=== PATIENT | female | born 1945 | race Caucasian/White ===

== ENCOUNTER 2017-03-16 14:54 | Emergency (ER) | payer MEDICARE, OTHER ==
[~2017-03-16 14:54] MED LIST: AEC81 PO; FAMO-136 PO; MYCO500T PO; OLAN2.5T3 PO; PANT40TA25 PO; PRAV40TA PO; PRED5TAB PO; TACR1CAP10 PO
[2017-03-16 15:36] LABS: BASOPHILS % (AUTO) 0.7 % (0.0-5.0); EOSINOPHILS % (AUTO) 0.8 % (0.0-8.0); HEMATOCRIT 29.4 % (36-48); LYMPHOCYTES % (AUTO) 25.5 % (21.0-51.0); MEAN CORPUSCULAR HEMOGLOBIN 29.4 pg (27.0-33.0); MEAN CORPUSCULAR HGB CONC 32.3 g/dL (32.0-36.0); MONOCYTES % (AUTO) 2.5 % (3.0-13.0); NEUTROPHILS % (AUTO) 70.5 % (40.0-77.0); PLATELET COUNT (AUTO) 287 K/uL (130-400); RED BLOOD CELL COUNT(AUTO) 3.23 MIL/uL (4.00-5.50); RED CELL DISTRIBUTION WIDTH 17.5 % (11.0-15.5); WHITE BLOOD COUNT (AUTO) 3.8 K/uL (4.8-10.8)
[2017-03-16 16:12] LABS: INR 0.97 (0.85-1.15); PARTIAL THROMBOPLASTIN TIME 23.4 SEC (26.3-35.5); PROTHROMBIN TIME 10.2 SEC (9.6-11.6)
[2017-03-16 16:25] LABS: CREATININE 1.6 mg/dL (0.5-1.5); POTASSIUM 4.2 mmol/L (3.5-5.1)
[2017-03-16 16:30] LABS: ALBUMIN 3.5 g/dL (3.5-5.0); BILIRUBIN,TOTAL 0.6 mg/dL (0.2-1.0); TOTAL PROTEIN, SERUM 7.6 g/dL (6.0-8.3)
[2017-03-16 17:59] LABS: APPEARANCE,URINE Clear (CLEAR); BILIRUBIN,URINE Negative (NEGATIVE); COLOR,URINE Yellow (YELLOW); GLUCOSE, URINE (UA) Negative (NEGATIVE); KETONES,URINE Negative (NEGATIVE); LEUKOCYTE ESTERASE ,URINE Negative (NEGATIVE); NITRATE,URINE Negative (NEGATIVE); OCCULT BLOOD,URINE Negative (NEGATIVE); PROTEIN,URINE Negative (NEGATIVE); UROBILINOGEN,URINE 0.2 mg/dL (0.2-1.0)
[2017-03-16 20:08] LABS: BASOPHILS % (AUTO) 0.9 % (0.0-5.0); EOSINOPHILS % (AUTO) 0.9 % (0.0-8.0); HEMATOCRIT 27.7 % (36-48); LYMPHOCYTES % (AUTO) 29.6 % (21.0-51.0); MEAN CORPUSCULAR HEMOGLOBIN 29.5 pg (27.0-33.0); MEAN CORPUSCULAR HGB CONC 32.5 g/dL (32.0-36.0); MEAN CORPUSCULAR VOLUME 90.7 fL (79-99); MONOCYTES % (AUTO) 2.4 % (3.0-13.0); NEUTROPHILS % (AUTO) 66.2 % (40.0-77.0); PLATELET COUNT (AUTO) 284 K/uL (130-400); RED BLOOD CELL COUNT(AUTO) 3.06 MIL/uL (4.00-5.50); RED CELL DISTRIBUTION WIDTH 17.5 % (11.0-15.5); WHITE BLOOD COUNT (AUTO) 3.7 K/uL (4.8-10.8)
== END 2017-03-16 20:34 | disposition home or self-care (01) ==
LOC: EDH 14:54
DX: D64.9 Anemia, unspecified (principal); R53.1 Weakness; R41.0 Disorientation, unspecified; I12.0 Hypertensive chronic kidney disease with stage 5 chronic kidney disease or end stage renal disease; N18.6 End stage renal disease; F41.9 Anxiety disorder, unspecified; Z88.6 Allergy status to analgesic agent; Z88.2 Allergy status to sulfonamides; Z99.2 Dependence on renal dialysis
CPT/HCPCS: 36415; 70450; 80053; 81003; 85025; 85610; 85730; 93005

== ENCOUNTER 2018-12-23 11:05 | Inpatient (IN) | payer OTHER ==
[~2018-12-23] VITALS: Ht 149.9 cm; Wt 62.5 kg
[~2018-12-23 11:05] MED LIST changes: -AEC81 PO; +AMLO10TA7 PO; +CARV6.25 PO; +ESZO3 PO; -FAMO-136 PO; +LAMO200T51 PO; +LEVO75TA4 PO; +LOSA50TA64 PO; +MAGN400T40 PO; -MYCO500T PO; +OLAN10TA3 PO; -OLAN2.5T3 PO; +OLAN5TAB2 PO; -PRAV40TA PO; +PRAV40TA3 PO; +VALG450T3 PO
[2018-12-23] MEDS ORDERED: SODIUM CHLORIDE 0.9% 10 ML VIAL IVP PRN (11:45)
[2018-12-23] MEDS ORDERED: IPRATROPIUM/ALBUTEROL SULFATE 3 ML SOLUTION IH ONE (12:01)
[2018-12-23] MEDS ORDERED: ACETYLCYSTEINE 20% 200MG/ML 4ML VIAL ONE (12:02)
[2018-12-23] MEDS: IPRATROPIUM/ALBUTEROL SULFATE 3 ML SOLUTION IH SCH ×3 (12:10→23:54)
[2018-12-23] MEDS: ACETYLCYSTEINE 20% 200MG/ML 4ML VIAL IH SCH ×2 (12:10→23:54)
[2018-12-23 12:29] LABS: BASOPHILS % (AUTO) 0.2 % (0.0-5.0); HEMATOCRIT 34.9 % (36-48); LYMPHOCYTES % (AUTO) 15.4 % (21.0-51.0); MEAN CORPUSCULAR HEMOGLOBIN 31.8 pg (27.0-33.0); MEAN CORPUSCULAR HGB CONC 32.8 g/dL (32.0-36.0); MEAN CORPUSCULAR VOLUME 96.7 fL (79-99); MONOCYTES % (AUTO) 4.5 % (3.0-13.0); NEUTROPHILS % (AUTO) 79.9 % (40.0-77.0); NUCLEATED RED BLOOD CELLS 0.1 % (0.0-0.19); PLATELET COUNT (AUTO) 183 K/uL (130-400); RED BLOOD CELL COUNT(AUTO) 3.61 MIL/uL (4.00-5.50); RED CELL DISTRIBUTION WIDTH 14.7 % (11.0-15.5); WHITE BLOOD COUNT (AUTO) 9.3 K/uL (4.8-10.8)
[2018-12-23 12:38] LABS: CREATININE 1.9 mg/dL (0.5-1.5); POTASSIUM 4.1 mmol/L (3.5-5.1)
[2018-12-23 12:43] LABS: ALBUMIN 3.1 g/dL (3.5-5.0); BILIRUBIN,DIRECT 0.1 mg/dL (0.0-0.3); BILIRUBIN,TOTAL 0.6 mg/dL (0.2-1.0); TOTAL PROTEIN, SERUM 6.2 g/dL (6.0-8.3)
--- NOTE | 2018-12-23 13:44 | NUR ---
Received report from ED nurse Vianca Diallo RN. Per Vianca, no meds given in ED.
--- NOTE | 2018-12-23 13:47 | NUR ---
SMOKED 1PK/WEEK Addendum: 12/23/18 at 1348 by EYAD ABDUL RT Amended: Links added.
[2018-12-23 13:55] VITALS: BP 147/71
[2018-12-23] MEDS ORDERED: SOD1POWD3 PO (14:42)
[2018-12-23] MEDS ORDERED: FAMO20TA8 PO (14:42)
[2018-12-23] MEDS ORDERED: TAMS-1 PO (14:42)
[2018-12-23] MEDS ORDERED: LAMO200T10 PO (14:42)
[2018-12-23] MEDS ORDERED: LEVO50 PO (14:42)
[2018-12-23] MEDS ORDERED: APIX5TAB PO (14:42)
[2018-12-23] MEDS ORDERED: MYCO500T PO (14:42)
[2018-12-23] MEDS ORDERED: LOSA50TA64 PO (14:42)
[2018-12-23] MEDS ORDERED: OLAN15TA18 PO (14:42)
[2018-12-23] MEDS ORDERED: CHOL500050 PO (14:54)
[2018-12-23 16:00] VITALS: BP 123/62
[2018-12-23] MEDS: CEFTRIAXONE SODIUM 1 GM IVP SCH ×2 (18:09→23:19)
[2018-12-23 20:00] VITALS: BP 132/67
[2018-12-23] MEDS: [UNRECOGNIZED DRUG - OTHER] PO SCH (21:00)
[2018-12-23] MEDS ORDERED: LEVOTHYROXINE 50 MCG TABLET PO SCH (21:00)
[2018-12-23] MEDS: ESZOPICLONE 3 MG PO SCH (21:00)
[2018-12-23] MEDS: LAMOTRIGINE 200 MG PO SCH (21:00)
[2018-12-23] MEDS: FAMOTIDINE 20MG TAB 20 MG TAB PO SCH (21:00)
[2018-12-23] MEDS: TAMSULOSIN HCL 0.4 MG CAP.ER.24H PO SCH (21:05)
[2018-12-23] MEDS: MYCOPHENOLATE MOFETIL 250 MG CAPSULE PO SCH (21:05)
[2018-12-23] MEDS: MAGNESIUM OXIDE 400 MG TABLET PO SCH (21:06)
[2018-12-23] MEDS: CARVEDILOL 6.25 MG TABLET PO SCH (21:06)
[2018-12-23] MEDS: APIXABAN 5 MG TABLET PO SCH (21:07)
[2018-12-23] MEDS: OLANZAPINE 5 MG TAB PO SCH (21:27)
[2018-12-23] MEDS: ATORVASTATIN CALCIUM 10 MG TABLET PO SCH (21:27)
[2018-12-23] MEDS: TACROLIMUS 1 MG CAPSULE PO SCH (21:28)
[2018-12-23] MEDS ORDERED: LAMOTRIGINE 25 MG TAB PO SCH (21:45)
[2018-12-24] VITALS (7 sets, daily range): BP systolic 102–155; BP diastolic 55–75
[2018-12-24 04:49] LABS: BASOPHILS % (AUTO) 0.1 % (0.0-5.0); HEMATOCRIT 30.9 % (36-48); LYMPHOCYTES % (AUTO) 22.5 % (21.0-51.0); MEAN CORPUSCULAR HEMOGLOBIN 32.1 pg (27.0-33.0); MEAN CORPUSCULAR HGB CONC 33.5 g/dL (32.0-36.0); MEAN CORPUSCULAR VOLUME 95.9 fL (79-99); MONOCYTES % (AUTO) 5.3 % (3.0-13.0); NEUTROPHILS % (AUTO) 72.1 % (40.0-77.0); PLATELET COUNT (AUTO) 180 K/uL (130-400); RED BLOOD CELL COUNT(AUTO) 3.22 MIL/uL (4.00-5.50); RED CELL DISTRIBUTION WIDTH 14.8 % (11.0-15.5)
[2018-12-24 05:09] LABS: ALBUMIN 2.5 g/dL (3.5-5.0); BILIRUBIN,DIRECT 0.1 mg/dL (0.0-0.3); BILIRUBIN,TOTAL 0.3 mg/dL (0.2-1.0); CREATININE 1.6 mg/dL (0.5-1.5); POTASSIUM 3.8 mmol/L (3.5-5.1); TOTAL PROTEIN, SERUM 5.4 g/dL (6.0-8.3)
[2018-12-24] MEDS: ACETYLCYSTEINE 20% 200MG/ML 4ML VIAL IH SCH ×3 (06:05→18:21)
[2018-12-24] MEDS: IPRATROPIUM/ALBUTEROL SULFATE 3 ML SOLUTION IH SCH ×3 (06:06→18:21)
[2018-12-24] MEDS: AMLODIPINE BESYLATE 5 MG TAB PO SCH (09:00)
[2018-12-24] MEDS: MYCOPHENOLATE MOFETIL 250 MG CAPSULE PO SCH ×2 (09:00→22:48)
[2018-12-24] MEDS: LOSARTAN 50 MG TABLET PO SCH (09:00)
[2018-12-24] MEDS: LAMOTRIGINE 200 MG PO SCH ×2 (09:00→21:00)
[2018-12-24] MEDS: CARVEDILOL 6.25 MG TABLET PO SCH ×2 (09:00→22:43)
[2018-12-24] MEDS: VALGANCICLOVIR HCL 450 MG TABLET PO SCH (09:00)
[2018-12-24] MEDS: [UNRECOGNIZED DRUG - OTHER] PO SCH ×2 (09:00→21:00)
[2018-12-24] MEDS: APIXABAN 5 MG TABLET PO SCH ×2 (09:00→22:43)
[2018-12-24] MEDS: PREDNISONE 5 MG TABLET PO SCH (09:00)
[2018-12-24] MEDS: TACROLIMUS 1 MG CAPSULE PO SCH ×2 (09:00→22:45)
[2018-12-24] MEDS ORDERED: ACETAMINOPHEN EXTRA STRENGTH 500 MG TABLET PO PRN (10:15)
[2018-12-24] MEDS: PANTOPRAZOLE SODIUM 40 MG TABLET.DR PO SCH (10:35)
[2018-12-24] MEDS: DOCUSATE SODIUM 100 MG CAP PO SCH (10:35)
[2018-12-24] MEDS: MAGNESIUM OXIDE 400 MG TABLET PO SCH ×2 (10:35→22:46)
[2018-12-24] MEDS: ACETAMINOPHEN EXTRA STRENGTH 500 MG TABLET PO PRN ×2 (10:36→14:08)
--- NOTE | 2018-12-24 11:00 | NUR ---
INITIAL AND REFERRAL TO SNF MET W PT, SISTER LOLA FELIX AND CAREGIVER ROBSON, SPOKE TO SPOUSE VIA TELEPHONE PT LIVES WITH SPOUES, USUALLY HAD 10 HR/DAYX5 DAY/WEEK CAREGIVING, RIGHT NOW ITS 18/09; NO STAIRS AT HOME- JUST TWO SMALL STEPS; PT WAS USING A CANE BUT IS NOW USING A WALKER/AND W/CHAIR- FREQUENT FALLS, RECENT SHARP DECLINE- PT CAN ANSWER APPROPRIATLEY BUT IS VERY SLEEPY AND ALLOWS SISTER TO GIVE HISTORY. ORER FOR SNF. [facility] /CHOICE FOR [facility] PER SISTER/CAREGIVER A AND CALL TO SPOUSE TO CONFIRM. CALL TO MORE TO INFORM OF REFERRAL AND FAXED , PENDING UT NOTES Addendum: 12/24/18 at 1727 by RUY LLANES RN Amended: Links added.
[2018-12-24] MEDS ORDERED: ONDANSETRON HCL 4 MG/2 ML VIAL ONE (11:55)
[2018-12-24] MEDS: CEFTRIAXONE SODIUM 1 GM IVP SCH (11:58)
[2018-12-24] MEDS: GUAIFENESIN-DM 200/20 MG 10 ML PO PRN (16:52)
[2018-12-24] MEDS ORDERED: IPRATROPIUM/ALBUTEROL SULFATE 3 ML SOLUTION IH ONE ×2 (18:04→22:43)
[2018-12-24] MEDS ORDERED: ACETYLCYSTEINE 20% 200MG/ML 4ML VIAL ONE ×2 (18:05→22:43)
[2018-12-24] MEDS: CEFTAZIDIME PENTAHYDRATE 1 GM/VIAL IVP SCH (18:07)
[2018-12-24] MEDS: FLUCONAZOLE 100 MG TAB PO SCH (18:07)
[2018-12-24] MEDS: LEVOFLOXACIN 500 MG TABLET PO SCH (18:08)
[2018-12-24] MEDS: ESZOPICLONE 3 MG PO SCH (21:00)
[2018-12-24] MEDS ORDERED: ZOLPIDEM TARTRATE 5 MG TAB PO SCH (21:00)
[2018-12-24] MEDS ORDERED: FAMOTIDINE 20MG TAB 20 MG TAB ONE (22:38)
[2018-12-24] MEDS: ATORVASTATIN CALCIUM 10 MG TABLET PO SCH (22:44)
[2018-12-24] MEDS: FAMOTIDINE 20MG TAB 20 MG TAB PO SCH (22:44)
[2018-12-24] MEDS: TAMSULOSIN HCL 0.4 MG CAP.ER.24H PO SCH (22:44)
[2018-12-24] MEDS: OLANZAPINE 5 MG TAB PO SCH (22:44)
[2018-12-24] MEDS: LEVOTHYROXINE 88 MCG TABLET PO SCH (22:44)
[2018-12-25 03:57] VITALS: BP 128/66
[2018-12-25 04:34] LABS: HEMATOCRIT 28.7 % (36-48); MEAN CORPUSCULAR HEMOGLOBIN 32.4 pg (27.0-33.0); MEAN CORPUSCULAR HGB CONC 33.4 g/dL (32.0-36.0); MEAN CORPUSCULAR VOLUME 96.9 fL (79-99); PLATELET COUNT (AUTO) 149 K/uL (130-400); RED BLOOD CELL COUNT(AUTO) 2.96 MIL/uL (4.00-5.50); RED CELL DISTRIBUTION WIDTH 14.9 % (11.0-15.5); WHITE BLOOD COUNT (AUTO) 9.8 K/uL (4.8-10.8)
[2018-12-25 05:01] LABS: CREATININE 1.6 mg/dL (0.5-1.5); POTASSIUM 4.1 mmol/L (3.5-5.1); THYROID STIMULATING HORMONE 7.32 uIU/mL (0.36-3.74)
[2018-12-25] MEDS: CEFTAZIDIME PENTAHYDRATE 1 GM/VIAL IVP SCH ×2 (05:31→18:15)
[2018-12-25] MEDS: ACETYLCYSTEINE 20% 200MG/ML 4ML VIAL IH SCH ×3 (05:59→19:10)
[2018-12-25] MEDS: IPRATROPIUM/ALBUTEROL SULFATE 3 ML SOLUTION IH SCH ×4 (06:00→23:47)
[2018-12-25 07:30] VITALS: BP 126/66
[2018-12-25] MEDS: MYCOPHENOLATE MOFETIL 250 MG CAPSULE PO SCH ×2 (09:00→21:00)
[2018-12-25] MEDS: LOSARTAN 50 MG TABLET PO SCH (09:00)
[2018-12-25] MEDS: PREDNISONE 5 MG TABLET PO SCH (09:00)
[2018-12-25] MEDS: CARVEDILOL 6.25 MG TABLET PO SCH ×2 (09:00→21:00)
[2018-12-25] MEDS: TACROLIMUS 1 MG CAPSULE PO SCH ×2 (09:00→21:00)
[2018-12-25] MEDS: AMLODIPINE BESYLATE 5 MG TAB PO SCH (09:00)
[2018-12-25] MEDS: VALGANCICLOVIR HCL 450 MG TABLET PO SCH (09:00)
[2018-12-25] MEDS: APIXABAN 5 MG TABLET PO SCH ×2 (09:00→21:00)
[2018-12-25] MEDS: [UNRECOGNIZED DRUG - OTHER] PO SCH ×2 (09:00→21:00)
[2018-12-25] MEDS: LAMOTRIGINE 200 MG PO SCH ×2 (09:00→21:00)
[2018-12-25] MEDS: ACETAMINOPHEN EXTRA STRENGTH 500 MG TABLET PO PRN ×2 (09:26→15:18)
[2018-12-25] MEDS: DOCUSATE SODIUM 100 MG CAP PO SCH (09:27)
[2018-12-25] MEDS: PANTOPRAZOLE SODIUM 40 MG TABLET.DR PO SCH (09:27)
[2018-12-25] MEDS: MAGNESIUM OXIDE 400 MG TABLET PO SCH ×2 (09:27→21:00)
[2018-12-25 11:00] VITALS: BP 105/59
[2018-12-25] MEDS: ALBUTEROL SULFATE 0.083% 2.5 MG/3 ML INH IH PRN (11:08)
[2018-12-25] MEDS: GUAIFENESIN-DM 200/20 MG 10 ML PO PRN ×2 (15:18→22:02)
[2018-12-25 16:00] VITALS: BP 111/54
[2018-12-25] MEDS: LEVOFLOXACIN 500 MG TABLET PO SCH (18:15)
[2018-12-25] MEDS: FLUCONAZOLE 100 MG TAB PO SCH (18:15)
[2018-12-25 19:45] VITALS: BP 128/59
[2018-12-25] MEDS: ESZOPICLONE 3 MG PO SCH (21:00)
[2018-12-25] MEDS: FAMOTIDINE 20MG TAB 20 MG TAB PO SCH (21:00)
[2018-12-25] MEDS: ATORVASTATIN CALCIUM 10 MG TABLET PO SCH (21:00)
[2018-12-25] MEDS: LEVOTHYROXINE 88 MCG TABLET PO SCH (21:00)
[2018-12-25] MEDS: TAMSULOSIN HCL 0.4 MG CAP.ER.24H PO SCH (21:00)
[2018-12-25] MEDS: ONDANSETRON HCL 4 MG/2 ML VIAL IVP PRN (21:48)
[2018-12-26] VITALS: BP 111/59
[2018-12-26] MEDS: GUAIFENESIN-DM 200/20 MG 10 ML PO PRN ×3 (03:53→20:49)
[2018-12-26 04:00] VITALS: BP 123/58
[2018-12-26 04:59] LABS: HEMATOCRIT 27.7 % (36-48); MEAN CORPUSCULAR HEMOGLOBIN 32.4 pg (27.0-33.0); MEAN CORPUSCULAR HGB CONC 33.5 g/dL (32.0-36.0); MEAN CORPUSCULAR VOLUME 96.5 fL (79-99); PLATELET COUNT (AUTO) 150 K/uL (130-400); RED BLOOD CELL COUNT(AUTO) 2.87 MIL/uL (4.00-5.50); WHITE BLOOD COUNT (AUTO) 7.9 K/uL (4.8-10.8)
[2018-12-26 05:06] LABS: CREATININE 1.7 mg/dL (0.5-1.5); POTASSIUM 3.5 mmol/L (3.5-5.1)
[2018-12-26] MEDS: CEFTAZIDIME PENTAHYDRATE 1 GM/VIAL IVP SCH ×2 (05:46→17:21)
[2018-12-26] MEDS: IPRATROPIUM/ALBUTEROL SULFATE 3 ML SOLUTION IH SCH ×4 (06:13→23:33)
[2018-12-26] MEDS: ACETYLCYSTEINE 20% 200MG/ML 4ML VIAL IH SCH ×3 (06:13→18:43)
[2018-12-26 07:54] VITALS: BP 124/60
[2018-12-26] MEDS: APIXABAN 5 MG TABLET PO SCH ×2 (09:00→20:45)
[2018-12-26] MEDS: MYCOPHENOLATE MOFETIL 250 MG CAPSULE PO SCH ×2 (09:00→20:44)
[2018-12-26] MEDS: TACROLIMUS 1 MG CAPSULE PO SCH ×2 (09:00→20:47)
[2018-12-26] MEDS: DOCUSATE SODIUM 100 MG CAP PO SCH (09:00)
[2018-12-26] MEDS: LOSARTAN 50 MG TABLET PO SCH (09:00)
[2018-12-26] MEDS: VALGANCICLOVIR HCL 450 MG TABLET PO SCH (09:00)
[2018-12-26] MEDS: MAGNESIUM OXIDE 400 MG TABLET PO SCH ×2 (09:00→20:47)
[2018-12-26] MEDS: PREDNISONE 5 MG TABLET PO SCH (09:00)
[2018-12-26] MEDS: PANTOPRAZOLE SODIUM 40 MG TABLET.DR PO SCH (09:00)
[2018-12-26] MEDS: LAMOTRIGINE 200 MG PO SCH ×2 (09:00→20:46)
[2018-12-26] MEDS: AMLODIPINE BESYLATE 5 MG TAB PO SCH (09:00)
[2018-12-26] MEDS: CARVEDILOL 6.25 MG TABLET PO SCH ×2 (09:00→20:45)
[2018-12-26] MEDS: [UNRECOGNIZED DRUG - OTHER] PO SCH ×2 (09:00→20:47)
[2018-12-26] MEDS: ONDANSETRON HCL 4 MG/2 ML VIAL IVP PRN (09:58)
[2018-12-26 11:00] VITALS: BP 124/60
[2018-12-26] MEDS: ALBUTEROL SULFATE 0.083% 2.5 MG/3 ML INH IH PRN (11:06)
--- NOTE | 2018-12-26 12:30 | NUR ---
KE BROWNLEE. Addendum: 12/26/18 at 1441 by RUY LLANES RN CM Amended: Links added.
[2018-12-26] MEDS: CLOTRIMAZOLE 10 MG TROCHE MM SCH ×2 (15:01→21:24)
[2018-12-26 15:52] VITALS: BP 119/62
[2018-12-26] MEDS: LEVOFLOXACIN 500 MG TABLET PO SCH (17:21)
[2018-12-26] MEDS ORDERED: OLAN10TA3 PO (19:24)
[2018-12-26] MEDS ORDERED: OLAN5TAB2 PO (19:24)
[2018-12-26] MEDS ORDERED: ZOLP5TAB2 PO (19:24)
[2018-12-26 20:07] VITALS: BP 131/65
--- NOTE | 2018-12-26 20:42 | NUR ---
DR. HERNANDEZ OKEYED RESUMPTION OF ZYPREXA AND AMBIEN PER PT REQUEST, SEE EMAR
[2018-12-26] MEDS: TAMSULOSIN HCL 0.4 MG CAP.ER.24H PO SCH (20:45)
[2018-12-26] MEDS: ESZOPICLONE 3 MG PO SCH (20:46)
[2018-12-26] MEDS: FAMOTIDINE 20MG TAB 20 MG TAB PO SCH (20:47)
[2018-12-26] MEDS: ATORVASTATIN CALCIUM 10 MG TABLET PO SCH (20:47)
[2018-12-26] MEDS: LEVOTHYROXINE 88 MCG TABLET PO SCH (20:48)
[2018-12-26] MEDS ORDERED: ZOLPIDEM TARTRATE 5 MG TAB PO SCH (21:00)
[2018-12-26] MEDS ORDERED: OLANZAPINE 5 MG TAB PO SCH (21:00)
[2018-12-27 00:08] VITALS: BP 131/62
[2018-12-27 04:00] VITALS: BP 122/60
[2018-12-27 05:00] LABS: BASOPHILS % (AUTO) 0.1 % (0.0-5.0); HEMATOCRIT 28.5 % (36-48); LYMPHOCYTES % (AUTO) 22.9 % (21.0-51.0); MEAN CORPUSCULAR HEMOGLOBIN 31.5 pg (27.0-33.0); MEAN CORPUSCULAR HGB CONC 32.9 g/dL (32.0-36.0); MEAN CORPUSCULAR VOLUME 95.6 fL (79-99); MONOCYTES % (AUTO) 3.7 % (3.0-13.0); NEUTROPHILS % (AUTO) 73.3 % (40.0-77.0); PLATELET COUNT (AUTO) 188 K/uL (130-400); RED BLOOD CELL COUNT(AUTO) 2.98 MIL/uL (4.00-5.50); RED CELL DISTRIBUTION WIDTH 14.6 % (11.0-15.5); WHITE BLOOD COUNT (AUTO) 6.7 K/uL (4.8-10.8)
[2018-12-27 05:28] LABS: CREATININE 1.6 mg/dL (0.5-1.5); POTASSIUM 3.6 mmol/L (3.5-5.1)
[2018-12-27] MEDS: CLOTRIMAZOLE 10 MG TROCHE MM SCH ×2 (05:55→14:09)
[2018-12-27] MEDS: CEFTAZIDIME PENTAHYDRATE 1 GM/VIAL IVP SCH ×2 (05:55→17:27)
[2018-12-27] MEDS: IPRATROPIUM/ALBUTEROL SULFATE 3 ML SOLUTION IH SCH ×3 (06:24→18:21)
[2018-12-27] MEDS: ACETYLCYSTEINE 20% 200MG/ML 4ML VIAL IH SCH ×2 (06:24→12:55)
[2018-12-27 07:54] VITALS: BP 127/67
[2018-12-27] MEDS: MAGNESIUM OXIDE 400 MG TABLET PO SCH (09:00)
[2018-12-27] MEDS: [UNRECOGNIZED DRUG - OTHER] PO SCH (09:00)
[2018-12-27] MEDS: LOSARTAN 50 MG TABLET PO SCH (09:00)
[2018-12-27] MEDS: LAMOTRIGINE 200 MG PO SCH (09:00)
[2018-12-27] MEDS: PANTOPRAZOLE SODIUM 40 MG TABLET.DR PO SCH (09:00)
[2018-12-27] MEDS ORDERED: OLANZAPINE 5 MG TAB PO SCH (09:00)
[2018-12-27] MEDS: APIXABAN 5 MG TABLET PO SCH (09:00)
[2018-12-27] MEDS: PREDNISONE 5 MG TABLET PO SCH (09:00)
[2018-12-27] MEDS: MYCOPHENOLATE MOFETIL 250 MG CAPSULE PO SCH (09:00)
[2018-12-27] MEDS: AMLODIPINE BESYLATE 5 MG TAB PO SCH (09:00)
[2018-12-27] MEDS: TACROLIMUS 1 MG CAPSULE PO SCH (09:00)
[2018-12-27] MEDS: CARVEDILOL 6.25 MG TABLET PO SCH (09:00)
[2018-12-27] MEDS: VALGANCICLOVIR HCL 450 MG TABLET PO SCH (09:00)
[2018-12-27] MEDS: DOCUSATE SODIUM 100 MG CAP PO SCH (09:40)
[2018-12-27] MEDS: GUAIFENESIN-DM 200/20 MG 10 ML PO PRN (09:48)
[2018-12-27 11:59] VITALS: BP 114/58
[2018-12-27 16:00] VITALS: BP 110/57
[2018-12-27] MEDS: LEVOFLOXACIN 500 MG TABLET PO SCH (17:27)
--- NOTE | 2018-12-27 19:08 | NUR ---
MEDICATION REC SENT TO [facility] AND REPORT GIVEN, PATIENT GIVEN DISCHARGE INSTRUCTIONS AND VERBALIZED UNDERSTANDING, REVIEWED MEDICATION AND FOLLOW-UP APPOINTMENT WITH DR WARD 12/28/18 WALK IN CLINIC. IV REMOVED AND PRESSURE HELD TO SITE AND THEN SITE DRESSED. WAITING FOR VAN FROM [facility] FOR TRANSPORTATION TO SNF FRO CONTINUE ABD THERAPY AND REHAB
[2018-12-30] MEDS ORDERED: CHOLECALCIFEROL PO SCH (09:00)
== END 2018-12-27 19:35 | DRG 193 ==
LOC: EDH 11:05 → EDHIP 11:06 → OBSVTOIN 11:06 → 3AH 14:01
PROVIDERS: ADMIT Internal Medicine; ATTEND Internal Medicine
DX: J18.9 Pneumonia, unspecified organism (principal); N18.6 End stage renal disease; B37.0 Candidal stomatitis; J44.0 Chronic obstructive pulmonary disease with (acute) lower respiratory infection; N17.9 Acute kidney failure, unspecified; I12.0 Hypertensive chronic kidney disease with stage 5 chronic kidney disease or end stage renal disease; Z94.0 Kidney transplant status; K12.30 Oral mucositis (ulcerative), unspecified; E03.9 Hypothyroidism, unspecified; F31.9 Bipolar disorder, unspecified; Y95 Nosocomial condition; D64.9 Anemia, unspecified; E78.00 Pure hypercholesterolemia, unspecified; E78.5 Hyperlipidemia, unspecified; E86.0 Dehydration; G40.909 Epilepsy, unspecified, not intractable, without status epilepticus; I48.91 Unspecified atrial fibrillation; S09.90XA Unspecified injury of head, initial encounter; S29.9XXA Unspecified injury of thorax, initial encounter; W18.30XA Fall on same level, unspecified, initial encounter; K05.10 Chronic gingivitis, plaque induced; Z79.01 Long term (current) use of anticoagulants; Z88.5 Allergy status to narcotic agent; Z88.2 Allergy status to sulfonamides; Y93.89 Activity, other specified; Y92.89 Other specified places as the place of occurrence of the external cause; Y99.8 Other external cause status
CPT/HCPCS: 36415; 70450; 71250; 80048; 80053; 80076; 84443; 85025; 85027; 94640; 94664; 94667; 94668; 97039; G0378; J0696; J0713; J2405; J7507; J7512; J7517; J7608

== ENCOUNTER 2021-01-07 04:58 | Observation (INO) | payer MEDICARE ==
[~2021-01-07] VITALS: Ht 167.6 cm; Wt 72.6 kg
[~2021-01-07 04:58] MED LIST changes: +AMLO-258 PO; -AMLO10TA7 PO; +APIX5TAB PO; +CHOL500050 PO; +FAMO20TA8 PO; +LAMO200T10 PO; -LAMO200T51 PO; +LEVO50 PO; -LEVO75TA4 PO; +MYCO500T PO; +OLAN15TA36 PO; -PANT40TA25 PO; +PANT40TA54 PO; +SOD1POWD3 PO; +TAMS-1 PO; +ZOLP5TAB2 PO
[2021-01-07 05:30] LABS: BASOPHILS % (AUTO) 0.3 % (0.0-5.0); EOSINOPHILS % (AUTO) 2.2 % (0.0-8.0); HEMATOCRIT 31.8 % (36-48); LYMPHOCYTES % (AUTO) 47.2 % (21.0-51.0); MEAN CORPUSCULAR HEMOGLOBIN 28.4 pg (27.0-33.0); MEAN CORPUSCULAR HGB CONC 32.1 g/dL (32.0-36.0); MEAN CORPUSCULAR VOLUME 88.6 fL (79-99); MONOCYTES % (AUTO) 9.4 % (3.0-13.0); NEUTROPHILS % (AUTO) 40.6 % (40.0-77.0); PLATELET COUNT (AUTO) 251 K/uL (130-400); RED BLOOD CELL COUNT(AUTO) 3.59 MIL/uL (4.00-5.50); RED CELL DISTRIBUTION WIDTH 13.1 % (11.0-15.5); WHITE BLOOD COUNT (AUTO) 8.7 K/uL (4.8-10.8)
[2021-01-07 05:42] LABS: CARBON DIOXIDE 30 mmol/L (21-32); CHLORIDE 100 mmol/L (101-111); GLOMERULAR FILTR. RATE CALC 26 mL/min (>60); GLUCOSE,RANDOM 97 mg/dL (70-105); POTASSIUM 3.8 mmol/L (3.5-5.1); SODIUM SERUM 138 mmol/L (136-145); UREA NITROGEN, BLOOD 32 mg/dL (7-18)
[2021-01-07] MEDS ORDERED: ONDANSETRON 4MG INJ ONE ×2 (05:50→21:04)
[2021-01-07] MEDS ORDERED: HYDRALAZINE 20MG/ML VIAL ONE (05:50)
[2021-01-07 05:54] LABS: ALANINE AMINOTRANSFERASE 19 U/L (12-78); ALBUMIN 3.7 g/dL (3.5-5.0); ALCOHOL, BLOOD < 3 mg/dL (0-10); ASPARTATE AMINOTRANSFERASE 19 U/L (10-37); BILIRUBIN,TOTAL 0.3 mg/dL (0.2-1.0); CREATINE KINASE, TOTAL 68 U/L (21-232); THYROID STIMULATING HORMONE 49.66 uIU/mL (0.36-3.74); TOTAL PROTEIN, SERUM 7.6 g/dL (6.0-8.3)
[2021-01-07 05:57] LABS: AMMONIA < 10 umol/L (11-32)
[2021-01-07] MEDS ORDERED: HYDRALAZINE 20MG/ML VIAL IV ONE (06:00)
[2021-01-07] MEDS ORDERED: ONDANSETRON 4MG INJ IVP ONE (06:00)
[2021-01-07 06:13] LABS: APPEARANCE,URINE Clear (CLEAR); BILIRUBIN,URINE Negative (NEGATIVE); COLOR,URINE Yellow (YELLOW); GLUCOSE, URINE (UA) Negative (NEGATIVE); KETONES,URINE Negative (NEGATIVE); LEUKOCYTE ESTERASE ,URINE Negative (NEGATIVE); NITRATE,URINE Negative (NEGATIVE); OCCULT BLOOD,URINE Negative (NEGATIVE); PROTEIN,URINE Negative (NEGATIVE); UROBILINOGEN,URINE 0.2 mg/dL (0.2-1.0)
[2021-01-07 06:19] LABS: AMPHET/METH SCREEN,URINE NEGATIVE (NEGATIVE); BARBITURATE SCREEN, URINE NEGATIVE (NEGATIVE); BENZODIAZEPINES SCREEN,URINE NEGATIVE (NEGATIVE); CANNABINOID SCREEN,URINE NEGATIVE (NEGATIVE); COCAINE SCREEN,URINE NEGATIVE (NEGATIVE); OPIATE SCREEN,URINE NEGATIVE (NEGATIVE); PHENCYCLIDINE SCREEN,URINE NEGATIVE (NEGATIVE)
[2021-01-07] MEDS ORDERED: ACETAMINOPHEN 325 MG TAB ONE (07:33)
[2021-01-07] MEDS: ACETAMINOPHEN 325 MG TAB PO SCH (07:44)
[2021-01-07] MEDS: FENTANYL CITRATE PF 50 MCG/1 ML 2ML VIAL IVP SCH (08:01)
[2021-01-07 08:09] LABS: SALICYLATE < 2.8 mg/dL (2.8-20.0)
[2021-01-07 08:10] LABS: ACETAMINOPHEN < 1 mcg/mL (10-30)
[2021-01-07] MEDS: HONEY 1 APPL/ML TUBE TP SCH (09:00)
[2021-01-07] MEDS: CEFTRIAXONE 1G VIAL IVP SCH (10:56)
[2021-01-07] MEDS: 1/2 NS 1000ML 1,000 ML IV SCH (10:56)
[2021-01-07 11:15] VITALS: BP 118/58
[2021-01-07 12:00] VITALS: BP 137/72
[2021-01-07] MEDS ORDERED: TACR1CAP10 PO ×2 (15:50)
[2021-01-07] MEDS ORDERED: CARV6.25 PO (15:50)
[2021-01-07] MEDS ORDERED: ESZO3 PO (15:50)
[2021-01-07] MEDS ORDERED: LEVO100 PO (15:50)
[2021-01-07] MEDS ORDERED: PRED5TAB PO (15:50)
[2021-01-07] MEDS ORDERED: TRAM50TA4 PO (15:50)
[2021-01-07] MEDS ORDERED: PANT40TA54 PO (15:50)
[2021-01-07] MEDS ORDERED: FERS325 PO (15:50)
[2021-01-07] MEDS ORDERED: PRAV40TA3 PO (15:50)
[2021-01-07] MEDS ORDERED: APIX5TAB PO (15:50)
[2021-01-07] MEDS ORDERED: LAMO150T6 PO (15:50)
[2021-01-07] MEDS ORDERED: BACL10TA PO (15:50)
[2021-01-07] MEDS ORDERED: OLAN10TA73 PO (15:50)
[2021-01-07] MEDS ORDERED: LINA145C PO (15:50)
[2021-01-07] MEDS ORDERED: MAGN400T40 PO (15:50)
[2021-01-07] MEDS ORDERED: FURO20TA4 PO (15:50)
[2021-01-07 16:00] VITALS: BP 137/72
[2021-01-07] MEDS ORDERED: TRAMADOL HCL 50 MG TABLET PO PRN (16:00)
[2021-01-07] MEDS ORDERED: ONDANSETRON 4MG TABLET PO PRN (19:00)
[2021-01-07 19:39] VITALS: BP 159/59
[2021-01-07] MEDS: ESZOPICLONE 3 MG PO SCH (21:00)
[2021-01-07] MEDS: ONDANSETRON 4MG INJ IVP PRN (22:01)
[2021-01-07] MEDS: TACROLIMUS 1 MG CAPSULE PO SCH (22:32)
[2021-01-07] MEDS: OLANZAPINE 5 MG TAB PO SCH (22:32)
[2021-01-07] MEDS: CARVEDILOL 6.25 MG TABLET PO SCH (22:33)
[2021-01-07] MEDS: ATORVASTATIN 10 MG TABLET PO SCH (22:33)
[2021-01-07] MEDS: FERROUS SULFATE 325 MG TABLET.DR PO SCH (22:33)
[2021-01-07] MEDS: MAGNESIUM OXIDE 400 MG TABLET PO SCH (22:34)
[2021-01-07] MEDS: APIXABAN 5 MG TABLET PO SCH (22:34)
[2021-01-07] MEDS: LAMOTRIGINE 100 MG TABLET PO SCH (22:34)
[2021-01-07 23:04] VITALS: BP 149/66
[2021-01-08 04:09] LABS: HEMATOCRIT 29.4 % (36-48); MEAN CORPUSCULAR HEMOGLOBIN 28.4 pg (27.0-33.0); MEAN CORPUSCULAR VOLUME 88.8 fL (79-99); RED BLOOD CELL COUNT(AUTO) 3.31 MIL/uL (4.00-5.50); RED CELL DISTRIBUTION WIDTH 13.2 % (11.0-15.5); WHITE BLOOD COUNT (AUTO) 7.3 K/uL (4.8-10.8)
[2021-01-08 04:32] LABS: ALBUMIN 3.2 g/dL (3.5-5.0); BILIRUBIN,TOTAL 0.3 mg/dL (0.2-1.0); CREATININE 1.5 mg/dL (0.5-1.5); POTASSIUM 3.8 mmol/L (3.5-5.1); TOTAL PROTEIN, SERUM 6.8 g/dL (6.0-8.3)
[2021-01-08 05:05] VITALS: BP 155/66
[2021-01-08] MEDS: 1/2 NS 1000ML 1,000 ML IV SCH (06:28)
[2021-01-08 07:54] VITALS: BP 143/66
[2021-01-08] MEDS: ACETAMINOPHEN 325 MG TAB PO SCH (08:00)
[2021-01-08] MEDS: FENTANYL CITRATE PF 50 MCG/1 ML 2ML VIAL IVP SCH (08:00)
[2021-01-08] MEDS: LAMOTRIGINE 100 MG TABLET PO SCH ×2 (08:49→20:36)
[2021-01-08] MEDS: PANTOPRAZOLE 40 MG TAB DR PO SCH (08:49)
[2021-01-08] MEDS: APIXABAN 5 MG TABLET PO SCH ×2 (08:49→20:37)
[2021-01-08] MEDS: MAGNESIUM OXIDE 400 MG TABLET PO SCH ×2 (08:49→20:37)
[2021-01-08] MEDS: TACROLIMUS 0.5 MG CAPSULE PO SCH (08:49)
[2021-01-08] MEDS: FUROSEMIDE 20 MG TABLET PO SCH (08:50)
[2021-01-08] MEDS: CARVEDILOL 6.25 MG TABLET PO SCH ×2 (08:50→20:35)
[2021-01-08] MEDS: LEVOTHYROXINE 88 MCG TABLET PO SCH (08:50)
[2021-01-08] MEDS: PREDNISONE 5 MG TABLET PO SCH (08:50)
[2021-01-08] MEDS: BACLOFEN 10 MG TABLET PO SCH (08:50)
[2021-01-08] MEDS: HONEY 1 APPL/ML TUBE TP SCH (08:51)
[2021-01-08] MEDS: ONDANSETRON 4MG INJ IVP PRN (08:54)
[2021-01-08] MEDS: FERROUS SULFATE 325 MG TABLET.DR PO SCH ×2 (09:00→20:37)
[2021-01-08] MEDS ORDERED: **HM**(Linaclotide (Linzess) 145 MCG PO SCH (09:00)
[2021-01-08 10:27] VITALS: BP 120/53
[2021-01-08] MEDS: CEFTRIAXONE 1G VIAL IVP SCH (12:10)
[2021-01-08 16:22] VITALS: BP 130/55
[2021-01-08 20:10] VITALS: BP 139/62
[2021-01-08] MEDS: TACROLIMUS 1 MG CAPSULE PO SCH (20:35)
[2021-01-08] MEDS: ATORVASTATIN 10 MG TABLET PO SCH (20:37)
[2021-01-08] MEDS: OLANZAPINE 5 MG TAB PO SCH (20:37)
[2021-01-08] MEDS: ESZOPICLONE 3 MG PO SCH (20:37)
[2021-01-08 23:33] VITALS: BP 134/50
[2021-01-09] MEDS: 1/2 NS 1000ML 1,000 ML IV SCH (00:35)
[2021-01-09 03:26] VITALS: BP 128/64
[2021-01-09] MEDS: LEVOTHYROXINE 88 MCG TABLET PO SCH (07:27)
[2021-01-09] MEDS: ACETAMINOPHEN 325 MG TAB PO SCH (08:00)
[2021-01-09] MEDS: FENTANYL CITRATE PF 50 MCG/1 ML 2ML VIAL IVP SCH (08:00)
[2021-01-09 08:10] VITALS: BP 170/53
[2021-01-09] MEDS: MAGNESIUM OXIDE 400 MG TABLET PO SCH (09:00)
[2021-01-09] MEDS: TACROLIMUS 0.5 MG CAPSULE PO SCH (09:01)
[2021-01-09] MEDS: PANTOPRAZOLE 40 MG TAB DR PO SCH (09:01)
[2021-01-09] MEDS: PREDNISONE 5 MG TABLET PO SCH (09:01)
[2021-01-09] MEDS: CARVEDILOL 6.25 MG TABLET PO SCH (09:02)
[2021-01-09] MEDS: LAMOTRIGINE 100 MG TABLET PO SCH (09:03)
[2021-01-09] MEDS: APIXABAN 5 MG TABLET PO SCH (09:04)
[2021-01-09] MEDS: BACLOFEN 10 MG TABLET PO SCH (09:04)
[2021-01-09] MEDS: FUROSEMIDE 20 MG TABLET PO SCH (09:04)
[2021-01-09] MEDS: HONEY 1 APPL/ML TUBE TP SCH (09:12)
[2021-01-09 12:09] VITALS: BP 137/52
[2021-01-09] MEDS: CEFTRIAXONE 1G VIAL IVP SCH (12:23)
== END 2021-01-09 15:25 | disposition home or self-care (01) ==
LOC: EDH 04:58 → DAHIP 09:20 → EDHIP 09:20 → INTOOBSV 09:20 → UNDOADMIN 09:20 → 3AH 11:14
PROVIDERS: ADMIT Internal Medicine; ATTEND Internal Medicine
DX: R41.0 Disorientation, unspecified (principal); R44.3 Hallucinations, unspecified; E03.9 Hypothyroidism, unspecified; I12.9 Hypertensive chronic kidney disease with stage 1 through stage 4 chronic kidney disease, or unspecified chronic kidney disease; N18.9 Chronic kidney disease, unspecified; D64.9 Anemia, unspecified; F31.9 Bipolar disorder, unspecified; E78.5 Hyperlipidemia, unspecified; Z88.2 Allergy status to sulfonamides; Z79.01 Long term (current) use of anticoagulants; Z79.899 Other long term (current) drug therapy; Z98.890 Other specified postprocedural states
CPT/HCPCS: 36415 ×2; 70450; 71045; 74176; 80053 ×2; 80305; 81003; 82140; 82550; 83605; 83735; 84439; 84443; 84484; 85025; 85027; 96361 ×6; 96374; 96375; 96376 ×2; 99285; G0378 ×4; G0481; J0360; J0696 ×3; J2405 ×3; J3010; J7507 ×4; J7512 ×2

== ENCOUNTER → 2021-01-17 | Outpatient (CLI) | payer MEDICARE ==
[~2021-01-17] MED LIST changes: -AMLO-258 PO; +BACL10TA PO; -CHOL500050 PO; -FAMO20TA8 PO; +FERS325 PO; +FURO20TA4 PO; +LAMO150T6 PO; -LAMO200T10 PO; +LEVO100 PO; -LEVO50 PO; +LIDOCAINE HCL 4% LTA SOL 4 ML VIAL TP ONE; +LINA145C PO; -LOSA50TA64 PO; -MYCO500T PO; -OLAN10TA3 PO; +OLAN10TA73 PO; -OLAN15TA36 PO; -OLAN5TAB2 PO; -SOD1POWD3 PO; -TAMS-1 PO; +TRAM50TA4 PO; -VALG450T3 PO; -ZOLP5TAB2 PO
== END | disposition home or self-care (01) ==
LOC: WHH 11:28
PROVIDERS: ATTEND Family Medicine
DX: S81.802D Unspecified open wound, left lower leg, subsequent encounter (principal); L97.825 Non-pressure chronic ulcer of other part of left lower leg with muscle involvement without evidence of necrosis; E78.5 Hyperlipidemia, unspecified; I10 Essential (primary) hypertension; I48.91 Unspecified atrial fibrillation; F31.9 Bipolar disorder, unspecified; Z94.0 Kidney transplant status; Z90.710 Acquired absence of both cervix and uterus; Z87.891 Personal history of nicotine dependence; Z98.890 Other specified postprocedural states; Z79.899 Other long term (current) drug therapy; W22.8XXD Striking against or struck by other objects, subsequent encounter
CPT/HCPCS: 11042; 11045; A6209

== ENCOUNTER → 2021-01-24 | Outpatient (CLI) | payer MEDICARE | END | disposition home or self-care (01) | LOC: WHH 10:57 | PROVIDERS: ATTEND Family Medicine | DX: S81.802D Unspecified open wound, left lower leg, subsequent encounter (principal); L97.825 Non-pressure chronic ulcer of other part of left lower leg with muscle involvement without evidence of necrosis; S51.001A Unspecified open wound of right elbow, initial encounter; I10 Essential (primary) hypertension; I48.91 Unspecified atrial fibrillation; E78.5 Hyperlipidemia, unspecified; F31.9 Bipolar disorder, unspecified; Z90.710 Acquired absence of both cervix and uterus; Z87.891 Personal history of nicotine dependence; Z98.890 Other specified postprocedural states; Z79.899 Other long term (current) drug therapy; W22.8XXD Striking against or struck by other objects, subsequent encounter; X58.XXXA Exposure to other specified factors, initial encounter; Y92.89 Other specified places as the place of occurrence of the external cause; Y93.89 Activity, other specified; Y99.8 Other external cause status | CPT/HCPCS: A6209; G0463 ==

== ENCOUNTER 2021-01-25 15:10 | Observation (INO) | payer MEDICARE ==
[~2021-01-25] VITALS: Ht 157.5 cm; Wt 65.8 kg
[~2021-01-25 15:10] MED LIST changes: -LIDOCAINE HCL 4% LTA SOL 4 ML VIAL TP ONE
[2021-01-25 16:13] LABS: BASOPHILS % (AUTO) 0.2 % (0.0-5.0); EOSINOPHILS % (AUTO) 0.6 % (0.0-8.0); HEMATOCRIT 33.4 % (36-48); LYMPHOCYTES % (AUTO) 40.6 % (21.0-51.0); MEAN CORPUSCULAR HEMOGLOBIN 27.4 pg (27.0-33.0); MEAN CORPUSCULAR HGB CONC 31.1 g/dL (32.0-36.0); MEAN CORPUSCULAR VOLUME 87.9 fL (79-99); MONOCYTES % (AUTO) 4.2 % (3.0-13.0); NEUTROPHILS % (AUTO) 54.2 % (40.0-77.0); PLATELET COUNT (AUTO) 284 K/uL (130-400); RED CELL DISTRIBUTION WIDTH 13.1 % (11.0-15.5); WHITE BLOOD COUNT (AUTO) 8.3 K/uL (4.8-10.8)
[2021-01-25 16:25] LABS: POTASSIUM 4.4 mmol/L (3.5-5.1)
[2021-01-25 16:26] LABS: APPEARANCE,URINE Clear (CLEAR); BILIRUBIN,URINE Negative (NEGATIVE); COLOR,URINE Yellow (YELLOW); GLUCOSE, URINE (UA) Negative (NEGATIVE); KETONES,URINE Negative (NEGATIVE); LEUKOCYTE ESTERASE ,URINE Negative (NEGATIVE); NITRATE,URINE Negative (NEGATIVE); OCCULT BLOOD,URINE Negative (NEGATIVE); PROTEIN,URINE Negative (NEGATIVE); UROBILINOGEN,URINE 0.2 mg/dL (0.2-1.0)
[2021-01-25 16:29] LABS: ALBUMIN 4.1 g/dL (3.5-5.0); BILIRUBIN,TOTAL 0.4 mg/dL (0.2-1.0)
[2021-01-25] MEDS ORDERED: 0.9%NACL 1000ML 1,000 ML IV ONE (16:30)
[2021-01-25] MEDS ORDERED: 1/2 NS 1000ML 1,000 ML IV SCH (19:00)
[2021-01-25] MEDS ORDERED: CEFTRIAXONE 1G VIAL IVP SCH (19:00)
[2021-01-25] MEDS ORDERED: PEG 3350/NA SULF,BICARB,CL/KCL 4000 ML SOLN PO ONE (19:00)
[2021-01-26 06:17] LABS: BASOPHILS % (AUTO) 0.5 % (0.0-5.0); EOSINOPHILS % (AUTO) 1.3 % (0.0-8.0); HEMATOCRIT 31.2 % (36-48); LYMPHOCYTES % (AUTO) 47.9 % (21.0-51.0); MEAN CORPUSCULAR HEMOGLOBIN 27.4 pg (27.0-33.0); MEAN CORPUSCULAR HGB CONC 30.8 g/dL (32.0-36.0); MEAN CORPUSCULAR VOLUME 88.9 fL (79-99); MONOCYTES % (AUTO) 8.1 % (3.0-13.0); NEUTROPHILS % (AUTO) 41.8 % (40.0-77.0); PLATELET COUNT (AUTO) 274 K/uL (130-400); RED BLOOD CELL COUNT(AUTO) 3.51 MIL/uL (4.00-5.50); RED CELL DISTRIBUTION WIDTH 13.2 % (11.0-15.5); WHITE BLOOD COUNT (AUTO) 8.3 K/uL (4.8-10.8)
[2021-01-26 06:27] LABS: ALBUMIN 3.6 g/dL (3.5-5.0); BILIRUBIN,TOTAL 0.3 mg/dL (0.2-1.0); CREATININE 2.3 mg/dL (0.5-1.5); POTASSIUM 3.7 mmol/L (3.5-5.1)
[2021-01-26 12:13] VITALS: BP 166/64
[2021-01-26] MEDS ORDERED: ONDANSETRON 4MG INJ ONE (12:56)
[2021-01-26] MEDS ORDERED: CETIRIZINE HCL 5 MG TABLET PO ONE (12:56)
[2021-01-26] MEDS ORDERED: ONDANSETRON 4MG INJ IVP PRN (13:00)
[2021-01-26] MEDS ORDERED: CETIRIZINE HCL 5 MG TABLET PO SCH (13:00)
== END 2021-01-26 16:41 | disposition home or self-care (01) ==
LOC: EDH 15:10 → EDHIP 18:31
PROVIDERS: ADMIT Internal Medicine; ATTEND Internal Medicine
DX: N17.9 Acute kidney failure, unspecified (principal); K56.41 Fecal impaction; E86.0 Dehydration; I10 Essential (primary) hypertension; E78.5 Hyperlipidemia, unspecified; E78.00 Pure hypercholesterolemia, unspecified; F31.9 Bipolar disorder, unspecified; Z94.0 Kidney transplant status; Z79.899 Other long term (current) drug therapy
CPT/HCPCS: 36415 ×2; 74018; 74176; 80053 ×2; 81003; 83690; 83735; 85025 ×2; 96361; 96374; 96375; 99285; G0378 ×22; J2405

== ENCOUNTER → 2021-01-31 | Outpatient (CLI) | payer MEDICARE | END | disposition home or self-care (01) | LOC: WHH 11:04 | PROVIDERS: ATTEND Family Medicine | DX: S81.802D Unspecified open wound, left lower leg, subsequent encounter (principal); L97.825 Non-pressure chronic ulcer of other part of left lower leg with muscle involvement without evidence of necrosis; S51.001D Unspecified open wound of right elbow, subsequent encounter; I10 Essential (primary) hypertension; I48.91 Unspecified atrial fibrillation; E78.5 Hyperlipidemia, unspecified; F31.9 Bipolar disorder, unspecified; Z90.710 Acquired absence of both cervix and uterus; Z87.891 Personal history of nicotine dependence; Z98.890 Other specified postprocedural states; Z79.899 Other long term (current) drug therapy; W22.8XXD Striking against or struck by other objects, subsequent encounter; X58.XXXD Exposure to other specified factors, subsequent encounter | CPT/HCPCS: 17250; A4450; A6209 ==

== ENCOUNTER → 2021-02-07 | Outpatient (CLI) | payer MEDICARE | END | disposition home or self-care (01) | LOC: WHH 11:10 | PROVIDERS: ATTEND Family Medicine | DX: S81.802D Unspecified open wound, left lower leg, subsequent encounter (principal); L97.825 Non-pressure chronic ulcer of other part of left lower leg with muscle involvement without evidence of necrosis; I10 Essential (primary) hypertension; E78.5 Hyperlipidemia, unspecified; F31.9 Bipolar disorder, unspecified; I48.91 Unspecified atrial fibrillation; Z90.710 Acquired absence of both cervix and uterus; Z87.891 Personal history of nicotine dependence; Z79.899 Other long term (current) drug therapy; Z98.890 Other specified postprocedural states; X58.XXXD Exposure to other specified factors, subsequent encounter | CPT/HCPCS: 17250; A6209 ==

== ENCOUNTER 2021-02-11 14:19 | Inpatient (IN) | payer MEDICARE ==
[~2021-02-11] VITALS: Ht 160 cm; Wt 62.3 kg
[2021-02-11 15:00] LABS: BASOPHILS % (AUTO) 0.3 % (0.0-5.0); EOSINOPHILS % (AUTO) 0.5 % (0.0-8.0); HEMATOCRIT 33.3 % (36-48); LYMPHOCYTES % (AUTO) 29.6 % (21.0-51.0); MEAN CORPUSCULAR HGB CONC 30.6 g/dL (32.0-36.0); MEAN CORPUSCULAR VOLUME 88.1 fL (79-99); MONOCYTES % (AUTO) 5.2 % (3.0-13.0); NEUTROPHILS % (AUTO) 63.6 % (40.0-77.0); PLATELET COUNT (AUTO) 220 K/uL (130-400); RED BLOOD CELL COUNT(AUTO) 3.78 MIL/uL (4.00-5.50); RED CELL DISTRIBUTION WIDTH 12.9 % (11.0-15.5); WHITE BLOOD COUNT (AUTO) 6.6 K/uL (4.8-10.8)
[2021-02-11 15:19] LABS: CARBON DIOXIDE 28 mmol/L (21-32); CHLORIDE 101 mmol/L (101-111); CREATININE 2.8 mg/dL (0.5-1.5); GLOMERULAR FILTR. RATE CALC 18 mL/min (>60); GLUCOSE,RANDOM 177 mg/dL (70-105); SODIUM SERUM 139 mmol/L (136-145); UREA NITROGEN, BLOOD 26 mg/dL (7-18)
[2021-02-11 15:23] LABS: ALANINE AMINOTRANSFERASE 15 U/L (12-78); ALBUMIN 3.9 g/dL (3.5-5.0); ASPARTATE AMINOTRANSFERASE 22 U/L (10-37); BILIRUBIN,TOTAL 0.4 mg/dL (0.2-1.0); TOTAL PROTEIN, SERUM 7.4 g/dL (6.0-8.3)
[2021-02-11 15:39] LABS: CRP QUANTITATIVE < 2.00 mg/L (0.00-9.0)
[2021-02-11 15:52] LABS: B-TYPE NATRIURETIC PEPTIDE 180 pg/mL (0-100)
[2021-02-11 16:57] LABS: APPEARANCE,URINE Clear (CLEAR); BILIRUBIN,URINE Negative (NEGATIVE); COLOR,URINE Yellow (YELLOW); GLUCOSE, URINE (UA) Negative (NEGATIVE); KETONES,URINE Negative (NEGATIVE); LEUKOCYTE ESTERASE ,URINE Negative (NEGATIVE); NITRATE,URINE Negative (NEGATIVE); OCCULT BLOOD,URINE Negative (NEGATIVE); PH,URINE 7.5 (5.0-8.0); PROTEIN,URINE Negative (NEGATIVE); UROBILINOGEN,URINE 0.2 mg/dL (0.2-1.0)
[2021-02-11] MEDS ORDERED: HYDRALAZINE 20MG/ML VIAL IV ONE (17:00)
[2021-02-11] MEDS ORDERED: 0.9%NACL 1000ML 1,000 ML IV SCH ×2 (17:00→18:00)
[2021-02-11] MEDS ORDERED: PROMETHAZINE HCL 25 MG/ML 1ML AMPULE IM ONE (18:00)
[2021-02-11] MEDS ORDERED: LORAZEPAM 2 MG/ML 1 ML VIAL IVP PRN (21:30)
[2021-02-11] MEDS ORDERED: 0.9%NACL 10ML VIAL IVP PRN (21:30)
[2021-02-12] MEDS ORDERED: ARIP5TAB8 PO (00:11)
[2021-02-12] MEDS ORDERED: FAMO20TA8 PO (00:11)
[2021-02-12 04:40] VITALS: BP 156/90
[2021-02-12 07:24] LABS: HEMATOCRIT 31.2 % (36-48); MEAN CORPUSCULAR HEMOGLOBIN 27.1 pg (27.0-33.0); MEAN CORPUSCULAR HGB CONC 31.4 g/dL (32.0-36.0); MEAN CORPUSCULAR VOLUME 86.4 fL (79-99); RED BLOOD CELL COUNT(AUTO) 3.61 MIL/uL (4.00-5.50); RED CELL DISTRIBUTION WIDTH 13.1 % (11.0-15.5); WHITE BLOOD COUNT (AUTO) 8.3 K/uL (4.8-10.8)
[2021-02-12 07:42] LABS: CREATININE 2.2 mg/dL (0.5-1.5); POTASSIUM 4.2 mmol/L (3.5-5.1)
[2021-02-12 08:00] VITALS: BP 164/80
[2021-02-12] MEDS: LEVOTHYROXINE 100 MCG TABLET PO SCH (08:25)
[2021-02-12] MEDS: PANTOPRAZOLE 40 MG TAB DR PO SCH (08:25)
[2021-02-12] MEDS: FERROUS SULFATE 325 MG TABLET.DR PO SCH ×2 (08:28→17:00)
[2021-02-12] MEDS ORDERED: TRAMADOL HCL 50 MG TABLET PO PRN ×2 (08:30→14:30)
[2021-02-12] MEDS: MAGNESIUM OXIDE 400 MG TABLET PO SCH ×2 (09:00→20:58)
[2021-02-12] MEDS: LINACLOTIDE 145 MCG PO SCH (09:00)
[2021-02-12] MEDS ORDERED: TACROLIMUS 1 MG CAPSULE PO SCH (09:00)
[2021-02-12] MEDS: LAMOTRIGINE 100 MG TABLET PO SCH ×2 (09:00→21:01)
[2021-02-12] MEDS: FAMOTIDINE 20MG TAB PO SCH (09:00)
[2021-02-12] MEDS ORDERED: FUROSEMIDE 20 MG TABLET PO SCH (09:00)
[2021-02-12] MEDS: CARVEDILOL 6.25 MG TABLET PO SCH ×2 (09:00→21:00)
[2021-02-12] MEDS: PREDNISONE 5 MG TABLET PO SCH (09:00)
[2021-02-12] MEDS ORDERED: BACLOFEN 10 MG TABLET PO SCH (09:00)
[2021-02-12] MEDS ORDERED: LAMOTRIGINE 100 MG TABLET PO SCH (09:00)
[2021-02-12] MEDS: LAMOTRIGINE 25 MG TAB PO SCH ×2 (09:00→20:58)
[2021-02-12] MEDS: APIXABAN 5 MG TABLET PO SCH ×2 (09:00→21:01)
[2021-02-12 11:58] VITALS: BP 149/80
[2021-02-12 12:44] LABS: AMPHET/METH SCREEN,URINE NEGATIVE (NEGATIVE); BARBITURATE SCREEN, URINE NEGATIVE (NEGATIVE); BENZODIAZEPINES SCREEN,URINE NEGATIVE (NEGATIVE); CANNABINOID SCREEN,URINE NEGATIVE (NEGATIVE); COCAINE SCREEN,URINE NEGATIVE (NEGATIVE); OPIATE SCREEN,URINE NEGATIVE (NEGATIVE); PHENCYCLIDINE SCREEN,URINE NEGATIVE (NEGATIVE)
[2021-02-12 16:00] VITALS: BP 171/85
[2021-02-12] MEDS: LACTULOSE 20 GM/30 ML UDCUP PO PRN (16:48)
[2021-02-12 20:05] VITALS: BP 156/76
[2021-02-12] MEDS: ARIPIPRAZOLE 5 MG TABLET PO SCH (20:58)
[2021-02-12] MEDS: OLANZAPINE ODT 5 MG TAB PO SCH (20:59)
[2021-02-12] MEDS: SIMVASTATIN 20 MG TABLET PO SCH (21:00)
[2021-02-12] MEDS: TACROLIMUS 1 MG CAPSULE PO SCH (21:00)
[2021-02-12] MEDS: ESZOPICLONE 3 MG PO SCH (21:00)
[2021-02-12] MEDS: RISPERIDONE 0.5 MG TABLET PO SCH ×2 (21:00→22:21)
[2021-02-13] VITALS (7 sets, daily range): BP systolic 125–186; BP diastolic 51–85
[2021-02-13] MEDS: LEVOTHYROXINE 100 MCG TABLET PO SCH (06:30)
[2021-02-13] MEDS ORDERED: LEVOTHYROXINE 88 MCG TABLET ONE (06:35)
[2021-02-13] MEDS: PANTOPRAZOLE 40 MG TAB DR PO SCH (06:44)
[2021-02-13] MEDS: FERROUS SULFATE 325 MG TABLET.DR PO SCH ×2 (08:00→17:00)
[2021-02-13 08:14] LABS: HEMATOCRIT 30.5 % (36-48); MEAN CORPUSCULAR HEMOGLOBIN 27.1 pg (27.0-33.0); MEAN CORPUSCULAR HGB CONC 30.5 g/dL (32.0-36.0); MEAN CORPUSCULAR VOLUME 88.9 fL (79-99); PLATELET COUNT (AUTO) 208 K/uL (130-400); RED BLOOD CELL COUNT(AUTO) 3.43 MIL/uL (4.00-5.50); RED CELL DISTRIBUTION WIDTH 13.5 % (11.0-15.5); WHITE BLOOD COUNT (AUTO) 6.4 K/uL (4.8-10.8)
[2021-02-13 08:52] LABS: ALBUMIN 3.4 g/dL (3.5-5.0); BILIRUBIN,TOTAL 0.4 mg/dL (0.2-1.0); CREATININE 2.3 mg/dL (0.5-1.5); MAGNESIUM 3.2 mg/dL (1.80-2.40); POTASSIUM 3.4 mmol/L (3.5-5.1); THYROID STIMULATING HORMONE 3.36 uIU/mL (0.36-3.74); TOTAL PROTEIN, SERUM 6.6 g/dL (6.0-8.3)
[2021-02-13] MEDS: LINACLOTIDE 145 MCG PO SCH (09:00)
[2021-02-13] MEDS: MAGNESIUM OXIDE 400 MG TABLET PO SCH ×2 (10:21→20:39)
[2021-02-13] MEDS: CARVEDILOL 6.25 MG TABLET PO SCH ×2 (10:22→20:38)
[2021-02-13] MEDS: APIXABAN 5 MG TABLET PO SCH ×2 (10:24→20:38)
[2021-02-13] MEDS: RISPERIDONE 0.5 MG TABLET PO SCH ×3 (10:25→20:39)
[2021-02-13] MEDS: PREDNISONE 5 MG TABLET PO SCH (10:26)
[2021-02-13] MEDS: LAMOTRIGINE 100 MG TABLET PO SCH ×2 (10:26→20:38)
[2021-02-13] MEDS: THIAMINE HCL 100 MG TABLET PO SCH (10:26)
[2021-02-13] MEDS: FAMOTIDINE 20MG TAB PO SCH (10:26)
[2021-02-13] MEDS: LAMOTRIGINE 25 MG TAB PO SCH ×2 (10:26→20:39)
[2021-02-13 11:50] LABS: EOSINOPHILS % (MANUAL) 2 % (1-6); LYMPHOCYTES % (MANUAL) 50 % (22-44); MAN.DIFF COMMENT-IMPRESSION MANUAL DIFFERENTIAL; MONOCYTES % (MANUAL) 2 % (2-9); PLATELET MORPHOLOGY COMMENT ADEQUATE; SEGMENTED NEUTROPHILS % 46 % (40-70)
[2021-02-13] MEDS: TACROLIMUS 0.5 MG CAPSULE PO SCH (12:23)
[2021-02-13] MEDS: TACROLIMUS 1 MG CAPSULE PO SCH ×2 (12:24→20:39)
[2021-02-13] MEDS: ARIPIPRAZOLE 5 MG TABLET PO SCH (20:38)
[2021-02-13] MEDS: SIMVASTATIN 20 MG TABLET PO SCH (20:39)
[2021-02-13] MEDS: OLANZAPINE ODT 5 MG TAB PO SCH (20:39)
[2021-02-13] MEDS: ESZOPICLONE 3 MG PO SCH (20:45)
[2021-02-13 22:01] LABS: BILIRUBIN,URINE Negative (NEGATIVE); COLOR,URINE Yellow (YELLOW); GLUCOSE, URINE (UA) Negative (NEGATIVE); KETONES,URINE Negative (NEGATIVE); LEUKOCYTE ESTERASE ,URINE Moderate (NEGATIVE); NITRATE,URINE Negative (NEGATIVE); OCCULT BLOOD,URINE Negative (NEGATIVE); PH,URINE 6.5 (5.0-8.0); PROTEIN,URINE POS 1+ mg/dL (NEGATIVE); UROBILINOGEN,URINE 0.2 mg/dL (0.2-1.0)
[2021-02-13 22:02] LABS: APPEARANCE,URINE SLIGHTLY CLOUDY (CLEAR)
[2021-02-13 22:13] LABS: BACTERIA,URINE Moderate /HPF (None Seen); RBC,URINE 0-1 /HPF (0-1); SQUAMOUS EPITHELIAL CELL,UR Few /HPF (0-2); TRANSITIONAL EPI CELLS,URINE Few /HPF (None Seen); WBC,URINE 26-50 /HPF (0-1)
[2021-02-14 04:04] VITALS: BP 155/71
[2021-02-14 04:35] LABS: HEMATOCRIT 28.2 % (36-48); MEAN CORPUSCULAR HEMOGLOBIN 27.1 pg (27.0-33.0); MEAN CORPUSCULAR HGB CONC 30.9 g/dL (32.0-36.0); MEAN CORPUSCULAR VOLUME 87.9 fL (79-99); RED BLOOD CELL COUNT(AUTO) 3.21 MIL/uL (4.00-5.50); RED CELL DISTRIBUTION WIDTH 13.2 % (11.0-15.5); WHITE BLOOD COUNT (AUTO) 5.7 K/uL (4.8-10.8)
[2021-02-14 04:51] LABS: CARBON DIOXIDE 27 mmol/L (21-32); CHLORIDE 105 mmol/L (101-111); CREATININE 2.4 mg/dL (0.5-1.5); GLOMERULAR FILTR. RATE CALC 21 mL/min (>60); GLUCOSE,RANDOM 82 mg/dL (70-105); POTASSIUM 3.5 mmol/L (3.5-5.1); SODIUM SERUM 141 mmol/L (136-145); UREA NITROGEN, BLOOD 22 mg/dL (7-18)
[2021-02-14 04:55] LABS: AMMONIA < 10 umol/L (11-32)
[2021-02-14 05:00] LABS: % IRON SATURATION 10.2 % (22-44)
[2021-02-14] MEDS: PANTOPRAZOLE 40 MG TAB DR PO SCH (06:16)
[2021-02-14] MEDS: LEVOTHYROXINE 100 MCG TABLET PO SCH (06:16)
[2021-02-14 07:47] VITALS: BP 159/86
[2021-02-14] MEDS: FERROUS SULFATE 325 MG TABLET.DR PO SCH ×2 (08:00→17:01)
[2021-02-14] MEDS: RISPERIDONE 0.5 MG TABLET PO SCH ×3 (09:00→22:03)
[2021-02-14] MEDS: LINACLOTIDE 145 MCG PO SCH (09:00)
[2021-02-14] MEDS: LAMOTRIGINE 25 MG TAB PO SCH ×2 (09:00→22:04)
[2021-02-14] MEDS: THIAMINE HCL 100 MG TABLET PO SCH (09:00)
[2021-02-14] MEDS: PREDNISONE 5 MG TABLET PO SCH (09:00)
[2021-02-14] MEDS: TACROLIMUS 0.5 MG CAPSULE PO SCH (09:00)
[2021-02-14] MEDS: LAMOTRIGINE 100 MG TABLET PO SCH ×2 (09:00→22:02)
[2021-02-14] MEDS ORDERED: CEFTRIAXONE 1G VIAL IVP SCH (10:30)
[2021-02-14] MEDS: MAGNESIUM OXIDE 400 MG TABLET PO SCH ×2 (10:34→22:02)
[2021-02-14] MEDS: TACROLIMUS 1 MG CAPSULE PO SCH ×2 (10:35→22:03)
[2021-02-14] MEDS: FAMOTIDINE 20MG TAB PO SCH (10:35)
[2021-02-14] MEDS: CARVEDILOL 6.25 MG TABLET PO SCH ×2 (10:36→21:00)
[2021-02-14] MEDS: APIXABAN 5 MG TABLET PO SCH ×2 (10:37→22:03)
[2021-02-14 11:44] VITALS: BP 127/50
[2021-02-14] MEDS: 1/2 NS 1000ML 1,000 ML IV SCH (12:35)
[2021-02-14] MEDS: LACTULOSE 20 GM/30 ML UDCUP PO PRN (12:39)
[2021-02-14] MEDS ORDERED: HONEY 1 APPL/ML TUBE TP ONE (15:41)
[2021-02-14 15:46] VITALS: BP 183/72
[2021-02-14] MEDS ORDERED: CLONIDINE HCL 0.1 MG TABLET PO ONE (18:50)
[2021-02-14 20:00] VITALS: BP 145/59
[2021-02-14] MEDS: ESZOPICLONE 3 MG PO SCH (21:00)
[2021-02-14] MEDS: ARIPIPRAZOLE 5 MG TABLET PO SCH (22:02)
[2021-02-14] MEDS: SIMVASTATIN 20 MG TABLET PO SCH (22:03)
[2021-02-14] MEDS: OLANZAPINE ODT 5 MG TAB PO SCH (22:03)
[2021-02-15] VITALS: BP 163/60
[2021-02-15 04:00] VITALS: BP 164/67
[2021-02-15] MEDS: PANTOPRAZOLE 40 MG TAB DR PO SCH (07:11)
[2021-02-15] MEDS: LEVOTHYROXINE 100 MCG TABLET PO SCH (07:11)
[2021-02-15 07:56] LABS: HEMATOCRIT 32.7 % (36-48); MEAN CORPUSCULAR HEMOGLOBIN 26.8 pg (27.0-33.0); MEAN CORPUSCULAR HGB CONC 30.6 g/dL (32.0-36.0); MEAN CORPUSCULAR VOLUME 87.7 fL (79-99); RED BLOOD CELL COUNT(AUTO) 3.73 MIL/uL (4.00-5.50); RED CELL DISTRIBUTION WIDTH 13.2 % (11.0-15.5); WHITE BLOOD COUNT (AUTO) 5.6 K/uL (4.8-10.8)
[2021-02-15 07:58] VITALS: BP 167/74
[2021-02-15] MEDS: FERROUS SULFATE 325 MG TABLET.DR PO SCH (08:00)
[2021-02-15 08:07] LABS: POTASSIUM 3.6 mmol/L (3.5-5.1)
[2021-02-15] MEDS: LINACLOTIDE 145 MCG PO SCH (09:00)
[2021-02-15] MEDS: FAMOTIDINE 20MG TAB PO SCH (09:10)
[2021-02-15] MEDS: THIAMINE HCL 100 MG TABLET PO SCH (09:10)
[2021-02-15] MEDS: APIXABAN 5 MG TABLET PO SCH (09:11)
[2021-02-15] MEDS: CARVEDILOL 6.25 MG TABLET PO SCH (09:12)
[2021-02-15] MEDS: PREDNISONE 5 MG TABLET PO SCH (09:12)
[2021-02-15] MEDS: LAMOTRIGINE 100 MG TABLET PO SCH (09:13)
[2021-02-15] MEDS: MAGNESIUM OXIDE 400 MG TABLET PO SCH (09:13)
[2021-02-15] MEDS: TACROLIMUS 0.5 MG CAPSULE PO SCH (09:13)
[2021-02-15] MEDS: LAMOTRIGINE 25 MG TAB PO SCH (09:13)
[2021-02-15] MEDS: TACROLIMUS 1 MG CAPSULE PO SCH (09:13)
[2021-02-15] MEDS: RISPERIDONE 0.5 MG TABLET PO SCH (09:14)
[2021-02-15] MEDS: 1/2 NS 1000ML 1,000 ML IV SCH (09:21)
[2021-02-15 11:40] VITALS: BP 195/75
== END 2021-02-15 13:27 | disposition home or self-care (01) | DRG 698 ==
LOC: EDH 14:19 → OBSVTOIN 20:55 → EDHIP 20:55 → 3BH 02-12 04:51
PROVIDERS: ADMIT Internal Medicine; ATTEND Internal Medicine
DX: T86.19 Other complication of kidney transplant (principal); G93.41 Metabolic encephalopathy; F31.60 Bipolar disorder, current episode mixed, unspecified; N39.0 Urinary tract infection, site not specified; N17.9 Acute kidney failure, unspecified; E78.5 Hyperlipidemia, unspecified; E11.22 Type 2 diabetes mellitus with diabetic chronic kidney disease; E86.0 Dehydration; I48.91 Unspecified atrial fibrillation; Y83.0 Surgical operation with transplant of whole organ as the cause of abnormal reaction of the patient, or of later complication, without mention of misadventure at the time of the procedure; N18.9 Chronic kidney disease, unspecified; I12.9 Hypertensive chronic kidney disease with stage 1 through stage 4 chronic kidney disease, or unspecified chronic kidney disease; Z79.01 Long term (current) use of anticoagulants; Y92.89 Other specified places as the place of occurrence of the external cause; Z88.5 Allergy status to narcotic agent; Z88.2 Allergy status to sulfonamides
CPT/HCPCS: 36415; 70450; 70551; 71045; 76770; 80048; 80053; 80197; 80305; 81001; 81003; 82140; 82728; 83540; 83550; 83735; 83880; 84443; 84484; 85025; 85027; 86140; 87077; 87088; 87186; 93005; 97039; G0378; J0360; J0696; J7030; J7507; J7512

== ENCOUNTER 2021-02-21 10:17 | Observation (INO) | payer MEDICARE ==
[~2021-02-21] VITALS: Ht 162.6 cm; Wt 62.1 kg
[~2021-02-21 10:17] MED LIST changes: +ARIP5TAB8 PO; -BACL10TA PO; +FAMO20TA8 PO; -FURO20TA4 PO; -LINA145C PO; -OLAN10TA73 PO
[2021-02-21] MEDS ORDERED: ACETAMINOPHEN 325 MG TAB PO PRN (11:00)
[2021-02-21] MEDS ORDERED: DIPHENHYDRAMINE HCL 25 MG CAPSULE PO PRN (11:00)
[2021-02-21] MEDS ORDERED: CLONIDINE HCL 0.1 MG TABLET PO PRN (11:00)
[2021-02-21] MEDS ORDERED: ONDANSETRON 4MG INJ IVP PRN (11:00)
[2021-02-21 11:09] LABS: BASOPHILS % (AUTO) 0.5 % (0.0-5.0); EOSINOPHILS % (AUTO) 1.7 % (0.0-8.0); HEMATOCRIT 32.8 % (36-48); LYMPHOCYTES % (AUTO) 41.3 % (21.0-51.0); MEAN CORPUSCULAR HEMOGLOBIN 27.2 pg (27.0-33.0); MEAN CORPUSCULAR HGB CONC 31.4 g/dL (32.0-36.0); MEAN CORPUSCULAR VOLUME 86.8 fL (79-99); NEUTROPHILS % (AUTO) 45.3 % (40.0-77.0); PLATELET COUNT (AUTO) 231 K/uL (130-400); RED BLOOD CELL COUNT(AUTO) 3.78 MIL/uL (4.00-5.50); RED CELL DISTRIBUTION WIDTH 13.1 % (11.0-15.5); WHITE BLOOD COUNT (AUTO) 6.4 K/uL (4.8-10.8)
[2021-02-21] MEDS: 1/2 NS 1000ML 1,000 ML IV SCH (11:31)
[2021-02-21 11:34] LABS: CREATININE 2.5 mg/dL (0.5-1.5); POTASSIUM 3.1 mmol/L (3.5-5.1)
[2021-02-21 11:39] LABS: ALBUMIN 3.9 g/dL (3.5-5.0); BILIRUBIN,DIRECT 0.1 mg/dL (0.0-0.3); BILIRUBIN,TOTAL 0.5 mg/dL (0.2-1.0); TOTAL PROTEIN, SERUM 7.2 g/dL (6.0-8.3)
[2021-02-21] MEDS ORDERED: LACT10SO9 PO (11:55)
[2021-02-21] MEDS ORDERED: DIPH25TA51 PO (11:55)
[2021-02-21] MEDS ORDERED: NITR100C4 PO (11:55)
[2021-02-21] MEDS ORDERED: ONDA4TAB4 PO (11:55)
[2021-02-21] MEDS ORDERED: RISP1SOL4 PO (11:55)
[2021-02-21] MEDS ORDERED: TRAMADOL HCL 50 MG TABLET PO PRN (12:00)
[2021-02-21 16:31] LABS: APPEARANCE,URINE Clear (CLEAR); BILIRUBIN,URINE Negative (NEGATIVE); COLOR,URINE Yellow (YELLOW); GLUCOSE, URINE (UA) Negative (NEGATIVE); KETONES,URINE 15 mg/dL (NEGATIVE); LEUKOCYTE ESTERASE ,URINE Negative (NEGATIVE); NITRATE,URINE Negative (NEGATIVE); OCCULT BLOOD,URINE Negative (NEGATIVE); PH,URINE 7.5 (5.0-8.0); PROTEIN,URINE Negative (NEGATIVE); UROBILINOGEN,URINE 0.2 mg/dL (0.2-1.0)
[2021-02-21 16:33] LABS: BACTERIA,URINE Rare /HPF (None Seen); RBC,URINE None Seen /HPF (0-1); SQUAMOUS EPITHELIAL CELL,UR None Seen /HPF (0-2); WBC,URINE 0-1 /HPF (0-1)
[2021-02-21] MEDS ORDERED: VANCOMYCIN 1G/250ML KIT 250 ML IV ONE (17:22)
[2021-02-21 20:00] VITALS: BP 156/71
[2021-02-21] MEDS: LUNESTA 3 MG PO SCH (21:00)
[2021-02-21] MEDS: ATORVASTATIN 10 MG TABLET PO SCH (21:05)
[2021-02-21] MEDS: LAMOTRIGINE 100 MG TABLET PO SCH (21:05)
[2021-02-21] MEDS: MAGNESIUM OXIDE 400 MG TABLET PO SCH (21:05)
[2021-02-21] MEDS: IPRATROPIUM/ALBUTEROL SULFATE 3 ML SOLUTION IH SCH (21:05)
[2021-02-21] MEDS: APIXABAN 5 MG TABLET PO SCH (21:06)
[2021-02-21] MEDS: CARVEDILOL 6.25 MG TABLET PO SCH (21:06)
[2021-02-22] VITALS: BP 148/68
[2021-02-22] MEDS: 1/2 NS 1000ML 1,000 ML IV SCH ×2 (00:20→13:40)
[2021-02-22 04:00] VITALS: BP 157/68
[2021-02-22] MEDS ORDERED: LEVOTHYROXINE 88 MCG TABLET ONE (05:02)
[2021-02-22 05:24] LABS: BASOPHILS % (AUTO) 0.3 % (0.0-5.0); EOSINOPHILS % (AUTO) 2.2 % (0.0-8.0); HEMATOCRIT 29.4 % (36-48); LYMPHOCYTES % (AUTO) 49.6 % (21.0-51.0); MEAN CORPUSCULAR HEMOGLOBIN 26.1 pg (27.0-33.0); MEAN CORPUSCULAR HGB CONC 29.9 g/dL (32.0-36.0); MEAN CORPUSCULAR VOLUME 87.2 fL (79-99); MONOCYTES % (AUTO) 11.5 % (3.0-13.0); NEUTROPHILS % (AUTO) 36.2 % (40.0-77.0); PLATELET COUNT (AUTO) 223 K/uL (130-400); RED BLOOD CELL COUNT(AUTO) 3.37 MIL/uL (4.00-5.50); RED CELL DISTRIBUTION WIDTH 13.3 % (11.0-15.5); WHITE BLOOD COUNT (AUTO) 5.9 K/uL (4.8-10.8)
[2021-02-22] MEDS: LEVOTHYROXINE 100 MCG TABLET PO SCH ×2 (05:27→05:28)
[2021-02-22 05:41] LABS: CREATININE 1.9 mg/dL (0.5-1.5); POTASSIUM 3.5 mmol/L (3.5-5.1)
[2021-02-22 05:45] LABS: ALBUMIN 3.2 g/dL (3.5-5.0); BILIRUBIN,DIRECT 0.1 mg/dL (0.0-0.3); BILIRUBIN,TOTAL 0.5 mg/dL (0.2-1.0); TOTAL PROTEIN, SERUM 6.1 g/dL (6.0-8.3)
[2021-02-22] MEDS: IPRATROPIUM/ALBUTEROL SULFATE 3 ML SOLUTION IH SCH ×3 (06:37→22:02)
[2021-02-22 08:37] VITALS: BP 165/67
[2021-02-22] MEDS: MAGNESIUM OXIDE 400 MG TABLET PO SCH ×2 (10:36→19:52)
[2021-02-22] MEDS: APIXABAN 5 MG TABLET PO SCH ×2 (10:37→19:52)
[2021-02-22] MEDS: FAMOTIDINE 20MG TAB PO SCH (10:38)
[2021-02-22] MEDS: LAMOTRIGINE 100 MG TABLET PO SCH ×2 (10:38→19:52)
[2021-02-22] MEDS: TACROLIMUS 0.5 MG CAPSULE PO SCH (10:38)
[2021-02-22] MEDS: TACROLIMUS 1 MG CAPSULE PO SCH (10:38)
[2021-02-22] MEDS: PANTOPRAZOLE 40 MG TAB DR PO SCH (10:39)
[2021-02-22] MEDS: PREDNISONE 5 MG TABLET PO SCH (10:39)
[2021-02-22] MEDS: CARVEDILOL 6.25 MG TABLET PO SCH ×2 (10:39→19:57)
[2021-02-22 10:49] VITALS: BP 148/58
[2021-02-22 15:41] VITALS: BP 141/58
[2021-02-22] MEDS ORDERED: LACTULOSE 20 GM/30 ML UDCUP PO ONE (16:30)
[2021-02-22] MEDS: HONEY 1 APPL/ML TUBE TP SCH (19:30)
[2021-02-22] MEDS ORDERED: LACTULOSE 20 GM/30 ML UDCUP PO SCH (19:30)
[2021-02-22] MEDS: ATORVASTATIN 10 MG TABLET PO SCH (19:52)
[2021-02-22] MEDS: LUNESTA 3 MG PO SCH (19:58)
[2021-02-22 20:00] VITALS: BP 160/79
[2021-02-23] VITALS: BP 154/61
[2021-02-23 04:00] VITALS: BP 144/75
[2021-02-23 05:04] LABS: BASOPHILS % (AUTO) 0.3 % (0.0-5.0); EOSINOPHILS % (AUTO) 1.7 % (0.0-8.0); HEMATOCRIT 28.6 % (36-48); MEAN CORPUSCULAR HEMOGLOBIN 26.2 pg (27.0-33.0); MEAN CORPUSCULAR HGB CONC 30.4 g/dL (32.0-36.0); MEAN CORPUSCULAR VOLUME 86.1 fL (79-99); MONOCYTES % (AUTO) 8.7 % (3.0-13.0); PLATELET COUNT (AUTO) 198 K/uL (130-400); RED BLOOD CELL COUNT(AUTO) 3.32 MIL/uL (4.00-5.50); RED CELL DISTRIBUTION WIDTH 13.2 % (11.0-15.5)
[2021-02-23 05:19] LABS: ALBUMIN 3.3 g/dL (3.5-5.0); BILIRUBIN,TOTAL 0.4 mg/dL (0.2-1.0); CREATININE 1.9 mg/dL (0.5-1.5); POTASSIUM 3.4 mmol/L (3.5-5.1); TOTAL PROTEIN, SERUM 6.3 g/dL (6.0-8.3)
[2021-02-23] MEDS ORDERED: LEVOTHYROXINE 88 MCG TABLET ONE (06:02)
[2021-02-23] MEDS: LEVOTHYROXINE 100 MCG TABLET PO SCH (06:04)
[2021-02-23] MEDS: IPRATROPIUM/ALBUTEROL SULFATE 3 ML SOLUTION IH SCH ×3 (06:32→22:54)
[2021-02-23 07:53] VITALS: BP 153/71
[2021-02-23] MEDS ORDERED: POTASSIUM CHLORIDE 10% ELIXIR 20 MEQ/15 ML UDCUP PO PRN (08:30)
[2021-02-23] MEDS ORDERED: LIDOCAINE HCL-MPF 1% 2ML VIAL IV PRN (08:30)
[2021-02-23] MEDS ORDERED: POTASSIUM CHLORIDE 10MEQ/100ML 100 ML IV PRN (08:30)
[2021-02-23] MEDS: TACROLIMUS 0.5 MG CAPSULE PO SCH (08:33)
[2021-02-23] MEDS: TACROLIMUS 1 MG CAPSULE PO SCH (08:33)
[2021-02-23] MEDS: CARVEDILOL 6.25 MG TABLET PO SCH ×2 (08:35→20:31)
[2021-02-23] MEDS: HONEY 1 APPL/ML TUBE TP SCH (08:37)
[2021-02-23] MEDS: MAGNESIUM OXIDE 400 MG TABLET PO SCH ×2 (09:00→20:25)
[2021-02-23] MEDS: LAMOTRIGINE 100 MG TABLET PO SCH (09:00)
[2021-02-23] MEDS: APIXABAN 5 MG TABLET PO SCH ×2 (09:00→20:25)
[2021-02-23] MEDS: PANTOPRAZOLE 40 MG TAB DR PO SCH (09:00)
[2021-02-23] MEDS: PREDNISONE 5 MG TABLET PO SCH (09:00)
[2021-02-23] MEDS: FAMOTIDINE 20MG TAB PO SCH (09:00)
[2021-02-23 11:20] VITALS: BP 157/70
[2021-02-23] MEDS: KCL 20 MEQ ERTAB PO PRN ×2 (11:22→15:43)
[2021-02-23 15:20] VITALS: BP 146/67
[2021-02-23] MEDS: 1/2 NS 1000ML 1,000 ML IV SCH ×2 (16:20→18:09)
[2021-02-23 20:00] VITALS: BP 123/54
[2021-02-23] MEDS: ATORVASTATIN 10 MG TABLET PO SCH (20:25)
[2021-02-23] MEDS: LUNESTA 3 MG PO SCH (20:32)
[2021-02-23] MEDS ORDERED: RISPERIDONE 1 MG TABLET PO SCH (21:00)
[2021-02-24 00:06] VITALS: BP 120/50
[2021-02-24 04:00] VITALS: BP 136/64
[2021-02-24] MEDS: 1/2 NS 1000ML 1,000 ML IV SCH (05:48)
[2021-02-24] MEDS: LEVOTHYROXINE 100 MCG TABLET PO SCH (05:48)
[2021-02-24] MEDS: IPRATROPIUM/ALBUTEROL SULFATE 3 ML SOLUTION IH SCH ×2 (06:05→14:46)
[2021-02-24 08:00] VITALS: BP 176/72
[2021-02-24] MEDS: HONEY 1 APPL/ML TUBE TP SCH (09:00)
[2021-02-24] MEDS: CARVEDILOL 6.25 MG TABLET PO SCH (09:00)
[2021-02-24] MEDS: FAMOTIDINE 20MG TAB PO SCH (10:18)
[2021-02-24] MEDS: APIXABAN 5 MG TABLET PO SCH (10:18)
[2021-02-24] MEDS: MAGNESIUM OXIDE 400 MG TABLET PO SCH (10:18)
[2021-02-24] MEDS: PREDNISONE 5 MG TABLET PO SCH (10:18)
[2021-02-24] MEDS: PANTOPRAZOLE 40 MG TAB DR PO SCH (10:19)
[2021-02-24] MEDS: TACROLIMUS 1 MG CAPSULE PO SCH (10:19)
[2021-02-24] MEDS: TACROLIMUS 0.5 MG CAPSULE PO SCH (10:21)
[2021-02-24 12:00] VITALS: BP 139/57
== END 2021-02-24 17:05 | disposition home or self-care (01) ==
LOC: EDH 10:17 → EDHIP 10:18 → 3DH 18:09
PROVIDERS: ADMIT Internal Medicine; ATTEND Internal Medicine
DX: R41.82 Altered mental status, unspecified (principal); E86.0 Dehydration; N39.0 Urinary tract infection, site not specified; I48.91 Unspecified atrial fibrillation; F25.0 Schizoaffective disorder, bipolar type; E03.9 Hypothyroidism, unspecified; K21.9 Gastro-esophageal reflux disease without esophagitis; D84.821 Immunodeficiency due to drugs; J44.9 Chronic obstructive pulmonary disease, unspecified; R13.10 Dysphagia, unspecified; E11.9 Type 2 diabetes mellitus without complications; N18.9 Chronic kidney disease, unspecified; F41.1 Generalized anxiety disorder; F31.9 Bipolar disorder, unspecified; R53.1 Weakness; Z79.01 Long term (current) use of anticoagulants; Z79.899 Other long term (current) drug therapy; Z87.440 Personal history of urinary (tract) infections; Z94.0 Kidney transplant status; Z98.890 Other specified postprocedural states
CPT/HCPCS: 36415 ×3; 71045; 74230; 80048 ×2; 80053; 80076 ×2; 81001; 85025 ×3; 87088; 92611; 94640 ×9; 94664; 96361 ×4; 96374; G0378 ×77; J2405; J3370; J7507 ×6; J7512 ×2